=== PATIENT | female | born 1995 | race African-American/Black ===

== ENCOUNTER 2019-07-23 11:26 | Emergency (ER) | payer OTHER ==
[~2019-07-23] VITALS: Ht 160 cm; Wt 72.6 kg
[2019-07-23 12:50] VITALS: BP 124/70
== END 2019-07-23 13:03 | disposition home or self-care (01) ==
LOC: ER 11:26
DX: R10.30 Lower abdominal pain, unspecified (principal); Z32.02 Encounter for pregnancy test, result negative